=== PATIENT | male | born 1965 | race Hispanic/Latino ===

== ENCOUNTER 2023-11-13 03:15 | Inpatient (IN) | payer BC ==
[2023-11-13 04:18] LABS: #Basophils 0.1 thou/uL (0.0-0.2); #Eosinphils 0.2 thou/uL (0.0-0.7); #Monocytes 0.5 thou/uL (0.11-0.59); #Neutrophils 5.4 thou/uL (1.40-6.50); %Eosinophils 1.9 % (0.0-10.0); %Lymphocytes 26.7 % (21.0-51.0); %Monocytes 6.2 % (0.0-10.0); Hematocrit 39.8 % (42.0-52.0); Hemoglobin 13.3 g/dL (14.0-18.0); Mean Corpuscular HGB CONC 33.4 g/dL (32.0-36.0); Mean Corpuscular Hemoglobin 30.9 pg (27.0-31.0); Mean Corpuscular Volume 92.6 fl (78.0-98.0); Mean Platelet Volume 10.5 fL (7.4-10.4); Platelet Count 188 10x3/uL (130-400); RBC Distribution Width 12.6 % (11.5-14.5); White Blood Cell (WBC) Count 8.4 10x3/uL (4.8-10.8)
[2023-11-13 04:49] LABS: ALT (SGPT) 20 U/L (8-55); AST (SGOT) 20 U/L (5-34); Albumin 4.2 g/dL (3.5-5.0); Alkaline Phosphatase 92 U/L (40-110); Anion Gap 13 mmol/L (10-20); BUN (Urea Nitrogen) 20 mg/dL (8.4-25.7); Bilirubin, Total 0.4 mg/dL (0.2-1.2); Calc. Creatinine Clearance 0 mL/min (70-130); Calcium 9.1 mg/dL (7.8-10.44); Carbon Dioxide 24 mmol/L (22-29); Chloride 105 mmol/L (98-107); Estimated GFR 75; Glucose 113 mg/dL (70-105); Potassium 3.7 mmol/L (3.5-5.1); Protein, Total 7.2 g/dL (6.0-8.3); Sodium 138 mmol/L (136-145)
[2023-11-13 04:55] LABS: Troponin I 0.012 ng/mL (< 0.028)
[2023-11-13] MEDS ORDERED: Nitroglycerin 0.4 MG TAB (25 Tab Bottle) ONE ×2 (05:29→07:46)
[2023-11-13] MEDS ORDERED: Senokot S 8.6-50 MG TAB PO PRN (07:19)
[2023-11-13] MEDS ORDERED: Bisacodyl 10 MG SUPP PR PRN (07:19)
[2023-11-13] MEDS ORDERED: Acetaminophen 325 MG TAB PO PRN (07:19)
[2023-11-13] MEDS ORDERED: Bisacodyl 5 MG TAB PO PRN (07:19)
[2023-11-13 07:29] LABS: Critical Call Chem Troponin I NUR.MBB@0730
[2023-11-13 07:30] LABS: Troponin I 0.861 ng/mL (< 0.028)
[2023-11-13 07:44] LABS: Hemoglobin A1c 5.3 % (4.0-6.0)
[2023-11-13] MEDS: Nitroglycerin 0.4 MG TAB (25 Tab Bottle) SL PRN (07:51)
[2023-11-13] MEDS ORDERED: Morphine 2 MG/ML VIAL SLOW IVP PRN ×2 (08:18→12:56)
[2023-11-13] MEDS ORDERED: Nitroglycerin 0.4 MG TAB (25 Tab Bottle) SL PRN (08:21)
[2023-11-13] MEDS ORDERED: Enoxaparin 40 MG (0.4 mL) SYRINGE SC SCH (09:00)
[2023-11-13] MEDS ORDERED: Atorvastatin Calcium 40 MG TAB ONE (09:04)
[2023-11-13] MEDS ORDERED: Enoxaparin 30 MG (0.3 mL) SYRINGE ONE (09:06)
[2023-11-13] MEDS ORDERED: Enoxaparin 40 MG (0.4 mL) SYRINGE ONE (09:07)
[2023-11-13] MEDS: Enoxaparin 80 MG (0.8 mL) SYRINGE SC SCH (09:14)
[2023-11-13] MEDS: Atorvastatin Calcium 40 MG TAB PO SCH (09:14)
[2023-11-13] MEDS ORDERED: Iopamidol 370 76% 100 ML VIAL ONE (09:22)
[2023-11-13] MEDS ORDERED: Morphine 2 MG/ML VIAL ONE (09:32)
[2023-11-13] MEDS ORDERED: Ondansetron PF 4 MG/2 ML Vial ONE ×3 (09:32→13:43)
[2023-11-13] MEDS: Ondansetron PF 4 MG/2 ML Vial IVP PRN (09:43)
[2023-11-13 10:39] LABS: Critical Call Chem Troponin I NUR.LH8 @1039; Troponin I 2.762 ng/mL (< 0.028)
[2023-11-13] MEDS ORDERED: Lidocaine 1% (PF) 30 ML VIAL ONE (11:08)
[2023-11-13] MEDS ORDERED: Nitroglycerin 50 MG/250 ML BOT 250 ML ONE (11:09)
[2023-11-13] MEDS ORDERED: Heparin 10,000 UNITS/ 10 ML VIAL ONE (11:09)
[2023-11-13] MEDS ORDERED: CATH FS PRN (11:15)
[2023-11-13 11:53] LABS: PTT 33.9 sec (22.9-36.1)
[2023-11-13] MEDS ORDERED: Midazolam HCl 2 mg/2 ml Vial ONE (11:54)
[2023-11-13] MEDS ORDERED: fentaNYL 50 mcg/mL 1 mL Vial ONE ×2 (11:54→12:41)
[2023-11-13] MEDS ORDERED: TICAGRELOR 90 MG TABLET ONE (12:25)
[2023-11-13 12:46] LABS: D-Dimer Test Less than 0.27 mcg/mL (0.27-0.43)
[2023-11-13] MEDS ORDERED: Mag-Al 1200 mg/1200 mg/30 ML UDCUP PO PRN (12:56)
[2023-11-13] MEDS ORDERED: traMADol HCl 50 MG TAB PO PRN (12:56)
[2023-11-13] MEDS ORDERED: Milk Of Magnesia 30 ML UDCUP PO PRN (12:56)
[2023-11-13] MEDS ORDERED: Zolpidem Tartrate 5 MG TAB PO PRN (12:56)
[2023-11-13 14:01] LABS: Prothrombin Time 13.5 sec (12.0-14.7)
[2023-11-13] MEDS: Morphine 4 MG/ML VIAL SLOW IVP SCH (15:18)
[2023-11-13] MEDS: Lactated Ringer's 1,000 ML IV SCH (16:16)
[2023-11-13] MEDS: fentaNYL 50 mcg/mL 1 mL Vial SLOW IVP PRN (16:23)
[2023-11-13 16:28] LABS: Critical Call Chem Troponin I ADM.RJP @1628; Troponin I 7.908 ng/mL (< 0.028)
[2023-11-13] MEDS ORDERED: Promethazine HCl 12.5 MG in Sodium Chloride 0.9% 50 ML IVPB PRN (17:06)
[2023-11-13] MEDS: Promethazine HCl 12.5 MG in Sodium Chloride 0.9% 50 ML IVPB SCH (17:21)
[2023-11-13 17:22] LABS: Amphetamine Not Detected (NotDetected); Barbiturates Screen Not Detected (NotDetected); Benzodiazepine Screen Not Detected (NotDetected); Cocaine Metabolite Screen Not Detected (NotDetected); Methadone Not Detected (NotDetected); Methamphetamine Not Detected (NotDetected); Opiate Screen Detected (NotDetected); Oxycodone Screen Not Detected (NotDetected); Phencyclidine (PCP) Not Detected (NotDetected); THC/Cannabinoid Screen Not Detected (NotDetected); Tricyclic Screen Not Detected (NotDetected)
[2023-11-13 18:35] VITALS: BMI 24.7
[2023-11-13 19:36] LABS: Critical Call Chem Troponin I NUR.JLC1 @1935
[2023-11-13] MEDS: diphenhydrAMINE 50 MG/ML VIAL IVP SCH (20:47)
[2023-11-13] MEDS: TICAGRELOR 90 MG TABLET PO SCH (20:47)
[2023-11-14 05:52] LABS: #Monocytes 0.7 thou/uL (0.11-0.59); #Neutrophils 8.6 thou/uL (1.40-6.50); %Basophils 0.4 % (0.0-1.0); %Lymphocytes 7.4 % (21.0-51.0); %Monocytes 6.9 % (0.0-10.0); Hemoglobin 13.3 g/dL (14.0-18.0); Mean Corpuscular HGB CONC 33.3 g/dL (32.0-36.0); Mean Corpuscular Hemoglobin 30.9 pg (27.0-31.0); Mean Platelet Volume 10.5 fL (7.4-10.4); Platelet Count 194 10x3/uL (130-400); RBC Distribution Width 12.8 % (11.5-14.5); White Blood Cell (WBC) Count 10.2 10x3/uL (4.8-10.8)
[2023-11-14 06:19] LABS: ALT (SGPT) 30 U/L (8-55); AST (SGOT) 140 U/L (5-34); Alkaline Phosphatase 83 U/L (40-110); Bilirubin, Direct 0.4 mg/dL (0.1-0.3); Bilirubin, Total 1.1 mg/dL (0.2-1.2); Iron 45 ug/dL (65-175); Iron Binding Capacity, Total 265 mcg/dL (261-462); Protein, Total 6.7 g/dL (6.0-8.3)
[2023-11-14 06:20] LABS: Anion Gap 13 mmol/L (10-20); BUN (Urea Nitrogen) 13 mg/dL (8.4-25.7); Calc. Creatinine Clearance 91 mL/min (70-130); Carbon Dioxide 22 mmol/L (22-29); Cardiac Risk 3.1 (Less than 4.5); Chloride 105 mmol/L (98-107); Cholesterol 147 mg/dl (< 200 Desired); Estimated GFR 100; Glucose 107 mg/dL (70-105); HDL Cholesterol 47 mg/dL (>60 Neg Risk); LDL Cholesterol, Calculated 78 mg/dL; Magnesium 2.1 mg/dL (1.6-2.6); Potassium 3.8 mmol/L (3.5-5.1); Sodium 136 mmol/L (136-145); Triglycerides 110 mg/dL (Less than 150)
[2023-11-14 06:23] LABS: ALT (SGPT) 31 U/L (8-55); AST (SGOT) 145 U/L (5-34); Albumin 4.1 g/dL (3.5-5.0); Alkaline Phosphatase 84 U/L (40-110); Anion Gap 15 mmol/L (10-20); BUN (Urea Nitrogen) 13 mg/dL (8.4-25.7); Bilirubin, Total 1.1 mg/dL (0.2-1.2); Calc. Creatinine Clearance 88 mL/min (70-130); Carbon Dioxide 21 mmol/L (22-29); Chloride 104 mmol/L (98-107); Estimated GFR 99; Globulin 2.8 g/dL (2.4-3.5); Glucose 106 mg/dL (70-105); Iron 43 ug/dL (65-175); Iron Binding Capacity, Total 268 mcg/dL (261-462); Potassium 3.8 mmol/L (3.5-5.1); Protein, Total 6.9 g/dL (6.0-8.3); Sodium 136 mmol/L (136-145)
[2023-11-14 06:31] LABS: Thyroid Stimulating Hormone 0.2426 uIU/mL (0.35-4.94)
[2023-11-14] MEDS: Pantoprazole 40 MG VIAL IVP SCH (07:50)
[2023-11-14] MEDS: Aspirin Chewable 81 MG TAB PO SCH (07:50)
[2023-11-14 13:30] LABS: Ferritin 155.97 ng/mL (22-322)
[2023-11-14] MEDS: Atorvastatin Calcium 40 MG TAB PO SCH (19:58)
[2023-11-15 04:27] LABS: #Monocytes 0.9 thou/uL (0.11-0.59); #Neutrophils 6.5 thou/uL (1.40-6.50); %Basophils 0.5 % (0.0-1.0); %Eosinophils 0.2 % (0.0-10.0); %Lymphocytes 11.8 % (21.0-51.0); %Monocytes 10.3 % (0.0-10.0); Hematocrit 39.2 % (42.0-52.0); Hemoglobin 13.3 g/dL (14.0-18.0); Mean Corpuscular HGB CONC 33.9 g/dL (32.0-36.0); Mean Corpuscular Hemoglobin 30.9 pg (27.0-31.0); Mean Corpuscular Volume 91.2 fl (78.0-98.0); Mean Platelet Volume 10.8 fL (7.4-10.4); Platelet Count 195 10x3/uL (130-400); RBC Distribution Width 12.9 % (11.5-14.5); White Blood Cell (WBC) Count 8.5 10x3/uL (4.8-10.8)
[2023-11-15 04:48] LABS: Anion Gap 12 mmol/L (10-20); BUN (Urea Nitrogen) 13 mg/dL (8.4-25.7); Calc. Creatinine Clearance 90 mL/min (70-130); Calcium 9.1 mg/dL (7.8-10.44); Carbon Dioxide 22 mmol/L (22-29); Chloride 105 mmol/L (98-107); Estimated GFR 100; Glucose 112 mg/dL (70-105); Potassium 3.7 mmol/L (3.5-5.1); Sodium 135 mmol/L (136-145)
[2023-11-15] MEDS: Lisinopril 2.5 MG TAB PO SCH (08:09)
[2023-11-15] MEDS: Metoprolol Tartrate 25 MG TAB PO SCH (20:06)
[2023-11-16 06:00] LABS: #Basophils 0.1 thou/uL (0.0-0.2); #Eosinphils 0.1 thou/uL (0.0-0.7); #Neutrophils 5.2 thou/uL (1.40-6.50); %Basophils 0.7 % (0.0-1.0); %Eosinophils 1.2 % (0.0-10.0); %Lymphocytes 15.6 % (21.0-51.0); %Monocytes 13.2 % (0.0-10.0); Hematocrit 36.2 % (42.0-52.0); Hemoglobin 12.3 g/dL (14.0-18.0); Mean Corpuscular Hemoglobin 31.4 pg (27.0-31.0); Mean Corpuscular Volume 92.3 fl (78.0-98.0); Mean Platelet Volume 10.7 fL (7.4-10.4); Platelet Count 176 10x3/uL (130-400); RBC Distribution Width 12.6 % (11.5-14.5); Red Blood Cell (RBC) Count 3.92 mill/uL (4.70-6.10); White Blood Cell (WBC) Count 7.5 10x3/uL (4.8-10.8)
[2023-11-16 06:27] LABS: Anion Gap 12 mmol/L (10-20); BUN (Urea Nitrogen) 15 mg/dL (8.4-25.7); Calc. Creatinine Clearance 79 mL/min (70-130); Carbon Dioxide 25 mmol/L (22-29); Chloride 103 mmol/L (98-107); Estimated GFR 96; Glucose 100 mg/dL (70-105); Magnesium 2.3 mg/dL (1.6-2.6); Potassium 3.8 mmol/L (3.5-5.1); Sodium 136 mmol/L (136-145)
[2023-11-16 16:15] VITALS: BP 106/69; TEMP 98.1
== END 2023-11-16 16:45 | disposition home or self-care (01) | DRG 322 ==
LOC: ERS 03:15 → ERHOLD 06:08 → SURG A 11:28 → CCU 15:12 → 2NO 11-15 06:17
PROVIDERS: ADMIT Internal Medicine; ATTEND Hospitalist
PROC: 4A023N7 Measurement of Cardiac Sampling and Pressure, Left Heart, Percutaneous Approach (ICD-10-PCS; principal; 2023-11-13)
PROC: 027034Z Dilation of Coronary Artery, One Artery with Drug-eluting Intraluminal Device, Percutaneous Approach (ICD-10-PCS; 2023-11-13)
PROC: B2151ZZ Fluoroscopy of Left Heart using Low Osmolar Contrast (ICD-10-PCS; 2023-11-13)
PROC: B2111ZZ Fluoroscopy of Multiple Coronary Arteries using Low Osmolar Contrast (ICD-10-PCS; 2023-11-13)
DX: I21.4 Non-ST elevation (NSTEMI) myocardial infarction (principal); E87.1 Hypo-osmolality and hyponatremia; I25.10 Atherosclerotic heart disease of native coronary artery without angina pectoris; E78.5 Hyperlipidemia, unspecified; D64.9 Anemia, unspecified; K52.9 Noninfective gastroenteritis and colitis, unspecified; E78.00 Pure hypercholesterolemia, unspecified; R73.9 Hyperglycemia, unspecified; Z79.899 Other long term (current) drug therapy
CPT/HCPCS: 36415; 71045; 76936; 80048; 80053; 80061; 80076; 80306; 82607; 82728; 83036; 83540; 83550; 83690; 83735; 83880; 84439; 84443; 84484; 85025; 85046; 85379; 85610; 85730; 86850; 86900; 86901; 92928; 92929; 93005; 93010; 93306; 93458; 93798; 94760; C1725; C1760; C1769; C1874; C1887; C9113; C9600; C9601; J1200; J1644; J1650; J2001; J2250; J2272; J2405; J2550; J3010; J7120; Q9967